=== PATIENT | female | born 1970 | race African-American/Black ===

== ENCOUNTER 2016-06-26 17:27 | Emergency (ER) | payer MEDICARE, MEDICAID ==
[2016-06-26 18:27] LABS: ALT (SGPT) 16 U/L (0-55); AST (SGOT) 17 U/L (5-34); Alkaline Phosphatase 87 U/L (40-150); Anion Gap 12 mmol/L (10-20); BUN (Urea Nitrogen) 8 mg/dL (7.0-18.7); Bilirubin, Total 0.3 mg/dL (0.2-1.2); Calc. Creatinine Clearance 0 mL/min (70-130); Calcium 8.8 mg/dL (7.8-10.44); Carbon Dioxide 25 mmol/L (22-29); Chloride 107 mmol/L (98-107); Estimated GFR-MDRD Greater than 90; Globulin 3.6 g/dL (2.4-3.5); Protein, Total 7.1 g/dL (6.0-8.3)
[2016-06-26 18:29] LABS: Troponin I Less than 0.010 ng/mL (< 0.028)
[2016-06-26 18:37] LABS: #Basophils 0.1 thou/uL (0.0-0.2); #Eosinphils 0.1 thou/uL (0.0-0.7); #Lymphocytes 2.2 thou/uL (1.20-3.40); #Monocytes 0.4 thou/uL (0.11-0.59); #Neutrophils 4.3 thou/uL (1.40-6.50); %Basophils 0.8 % (0.0-1.0); %Eosinophils 1.1 % (0.0-10.0); %Monocytes 5.5 % (0.0-10.0); Hematocrit 33.6 % (36.0-47.0); Hypochromia SLIGHT = 6-15 cells (100X) (0-5/hpf); Mean Platelet Volume 8.4 fL (7.4-10.4); Microcytosis SLIGHT = 6-15 cells (100X) (0-5/hpf); Red Blood Cell (RBC) Count 4.41 mill/uL (4.20-5.40); White Blood Cell (WBC) Count 7.1 thou/uL (4.8-10.8)
[2016-06-26] MEDS ORDERED: Enoxaparin Sodium 60 MG/0.6 ML SYRINGE ONE (18:55)
[2016-06-26] MEDS ORDERED: Enoxaparin Sodium 40 MG/0.4 ML SYRINGE ONE (18:55)
[2016-06-26 18:59] LABS: Prothrombin Time 13.8 SEC (12.0-14.7)
--- NOTE | 2016-06-26 19:23 | CT ---
CTA CHEST WITH 3D REFORMATTED IMAGING 06/26/16 CLINICAL HISTORY: Pain. History of deep vein thrombosis. Intermittent shortness of breath and chest pain. FINDINGS: There is no large central pulmonary embolus. There is beam attenuation and beam hardening artifact w hich does limit assessment. The segmental and subsegmental pulmonary arterial branches are diffusely heterogeneous which limits evaluation and could potentially obscure small peripheral emboli. The prosper ngs are clear. There is no effusion or pneumothorax. The thoracic aorta is nonaneurysmal. Scattered osseous degenerative changes are present. IMPRESSION: No large central pulmonary embolus. Evaluation is limited by the degree of beam hardening and result ant contrast bolus heterogeneity within the pulmonary arterial system. This could obscure filling de fects of the segmental and subsegmental pulmonary arterial branches. The equivocal nature of this exam was discussed with the patient's ER physician, Chon Guzman at 18 35 hours, 06/26/16. Code CR POS: BROOKS
--- NOTE | 2016-06-26 21:05 | PICIS ---
[facility] EMERGENCY RECORD TRIAGE (FriJun 26, 2016 17:32 EPIE) TRIAGE NOTES: Pt states that she thinks she has a blood clot. Pt took a plane ride on Friday to [place]. Pt reports restlessness, and pain in bilateral legs. Pt reports some SOB. (FriJun 26, 2016 17:32 EPIE) PATIENT: NAME: Sabino Whitman, AGE: 45, GENDER: female, : Fri1970, TIME OF GREET: FriJun 26, 2016 17:28, PREFERRED LANGUAGE: Belarusian, ETHNICITY: Not or , ECODE BILLING MAP: [facility], SSN: [id number], Zip Code: [address], KG WEIGHT: 157.40, PHONE: , , , PERSON ID: [id number], PCP: Machelle, Alphonso. (FriJun 26, 2016 17:32 EPIE) COMPLAINT: BILATERAL LEG PAIN. (FriJun 26, 2016 17:32 EPIE) ADMISSION: URGENCY: 3 Urgent, ADMISSION SOURCE: Home, TRANSPORT: CAR, BED: TRIAGE. (FriJun 26, 2016 17:32 EPIE) TRIAGE SCREENING: Patient denies suicidal ideation, Patient denies presence of domestic violence. (17:35 EPIE) TREATMENTS IN PROGRESS: Treatments given Prehospital: none. (17:35 EPIE) PROVIDERS: TRIAGE NURSE: Katherin Reynaga RN. (FriJun 26, 2016 17:32 EPIE) VITAL SIGNS: BP 180/81, Pulse 79, Resp 20, (Non-Labored), Temp 99.5, (Oral), Pain 9, O2 Sat 100, on Room Air, Time 06/26/2016 17:30. (17:30 EPIE) KNOWN ALLERGIES ampicillin Ultram CURRENT MEDICATIONS lisinopril: TABLET : Strength - 10 mg : ORAL Patient Dose: 10 mg Oral once a day. (17:32 EPIE) aspirin: TABLET : Strength - 325 mg : ORAL Patient Dose: 325 mg Oral once a day. (17:33 EPIE) NexIUM: CAPSULE,DELAYED RELEASE (ENTERIC COATED) : Strength - 20 mg : ORAL Patient Dose: UNK. (17:33 EPIE) VITAL SIGNS VITAL SIGNS: BP: 180/81, Pulse: 79, Resp: 20 (Non-Labored), Temp: 99.5 (Oral), Pain: 9, O2 sat: 100 on Room Air, Time: 06/26/2016 17:30. (17:30 EPIE) BP: 132/58, Pulse: 67, Resp: 20 (Non-Labored), O2 sat: 100 on Room Air, Time: 06/26/2016 18:30. (18:30 EPIE) BP: 132/51, Pulse: 69, Resp: 20 (Non-Labored), Temp: 98.6 (Oral), O2 sat: 98 on Room Air, Time: 06/26/2016 19:00. (19:00 EPIE) NURSING ASSESSMENT: FALL RISK (19:05 EPIE) &a-1R&a+25V*p+0X*s3039O*c202B*c15G*c2P*p-0X&a-25V&a+1R Name: Sabino Whitman : 1970 F45 MedRec: [id number] AcctNum: [id number] Prepared: FriJun 26, 2016 21:29 by Interface Page 1 of 9 pMD [facility] EMERGENCY RECORD FALL RISK: Fall risk assessment findings include: no history of falls (0), No bed rest greater than 2 days (0), No use of level of consciousness altering agents with mentation or cognitive changes (0), No change in blood pressure (0), No sensory deficits (0), No impaired mobility (0), No neurologic diagnosis (0), No elimination problems (0), No confusion (0), Total score 0, No risk for fall. NURSING ASSESSMENT: HEAD-TO-TOE (17:39 EPIE) CONSTITUTIONAL: Patient arrives ambulatory, Gait steady, History obtained from patient, Patient appears, anxious, Patient cooperative, Patient alert, Oriented to person, place and time, Skin warm, Skin dry, Skin normal in color, Mucous membranes pink, Mucous membranes moist, Patient is well-groomed, Pt states that she thinks she has a blood clot. Pt took a plane ride on Friday to [place]. Pt reports restlessness, and pain in bilateral legs. Pt reports some SOB. PAIN: aching pain, sharp pain, throbbing pain, BILATERAL LEGS, Onset of pain 06/26/2016, on a scale 0-10 patient rates pain as 9, Pt does not appear to be in distress, Nothing has been tried to alleviate the pain. SKIN: Skin assessment findings include skin warm, Skin dry, Skin normal in color. NEURO: Able to close eyes, Face symmetrical, Speech normal, GCS:, Eye opening: (4) - Spontaneous, Verbal: (5) - Oriented/conversive, Motor: (6) - Obeys commands/Spontaneous, GCS Total: 15. RESPIRATORY/CHEST: Breath sounds clear, Respiratory assessment findings include respiratory effort easy, Respirations regular, Conversing normally, Neck and chest exam findings include trachea midline, Chest expansion equal, Chest movement symmetrical, no signs of distress. CARDIOVASCULAR: Cardiovascular assessment findings include heart rate normal, Heart sounds normal, S1, S2, Associated with dyspnea, Patient history of DVT or leg swelling. ABDOMEN: Abdomen assessment findings include abdomen symmetrical, Abdomen soft. NURSING PROCEDURE: BEDSIDE SIRS TESTING (19:05 EPIE) SCORES: Heart Rate 55-109 (0), Temp range 96.8-101.1 (0), respiratory rate 12-24 (0), Latest WBC 3-14.9 (0), Mental Status altered: no (0), Infection or Suspected Infection: No. NURSING PROCEDURE: CLAIMS SUPPORT SPECIALIST (18:02 EPIE) PATIENT IDENTIFIER: Patient actively involved in identification process, Patient's identity verified by patient stating name, Patient's identity verified by hospital ID bracelet. CLAIMS SUPPORT SPECIALIST: Patient placed on director cardiac, Patient placed on non-invasive blood pressure monitor, with disposable blood pressure cuff applied, Patient placed on continuous pulse oximetry, &a-1R&a+25V*p+0X*o9063O*c202B*c15G*c2P*p-0X&a-25V&a+1R Name: Azar Whitmanisi Mcfarlane : 1970 F45 MedRec: [id number] AcctNum: [id number] Prepared: FriJun 26, 2016 21:29 by Interface Page 2 of 9 pMD [facility] EMERGENCY RECORD Adult/pediatric oxisensor applied. FOLLOW-UP: After procedure, alarms set and on, After procedure, patient tolerating monitoring. NURSING PROCEDURE: EKG CHART (17:53 EPIE) EK lead EKG performed on the left chest, done by Katherin VASQUEZ, first EKG. FOLLOW-UP: After procedure, EKG for interpretation given to Dr. Thomas GODWIN. NURSING PROCEDURE: IV (18:00 MSPE) IV SITE 1: IV therapy indicated for hydration, IV therapy indicated for medication administration, IV established, to the right antecubital, using an 18 gauge catheter, in one attempt, IV site prepped with Chloraprep, Saline lock established, Flushed with normal saline (mls): 10, Labs drawn at time of placement, labeled in the presence of the patient and sent to lab. NURSING PROCEDURE: NURSE NOTES (18:03 EPIE) NURSES NOTES: Notes: Patient resting with RR even and unlabored. No new complaints at this time. Warm blankets given for comfort. Awaiting CT scan. NURSING PROCEDURE: TRANSFER (19:20 EPIE) TRANSFER: Reason for transfer need for specialized care, Diagnosis: Bilateral Pulmonary Embolism, Accepting institution: [facility] ER, Accepting physician: Martin GODWIN, Referring physician: Thomas GODWIN, Transported by urgent ambulance, accompanied by emergency medical services personnel, Report called to receiving facility, Gillian VASQUEZ, Provided opportunity to answer questions, Bed assigned ER to ER, Summary of Care printed, Copy of patient record prepared for receiving facility, Patient consent for transfer signed. BELONGINGS: Belongings and valuables with patient upon arrival to the Emergency Department include:, Belongings and valuables with patient at time of discharge include:, Belongings remain with patient, Valuables remain with patient. NURSING PROCEDURE: TRANSPORT TO TESTS TRANSPORT TO TESTS: Patient transported to CT scan, ambulatory, Accompanied by x-ray quality assurance qa lab technician. (18:14 EPIE) FOLLOW-UP: After procedure, patient returned to emergency department. (18:22 EPIE) ORDER DETAILS Order Name: CLAIMS SUPPORT SPECIALIST ED, Status: Done, Time: 18:02 06/26/2016, User: EPIE, - Ordered for: MD Thomas, Chon, - Entered by: CHRISTINA Reynaga, Katherin - Neela Jun 26, 2016 18:02, - Quantity: 1, &a-1R&a+25V*p+0X*k4351Y*c202B*c15G*c2P*p-0X&a-25V&a+1R Name: Sabino Whitman : 1970 F45 MedRec: [id number] AcctNum: [id number] Prepared: FriJun 26, 2016 21:29 by Interface Page 3 of 9 D [facility] EMERGENCY RECORD Order Name: Cardiac Profile w/CKMB & Troponin - I, Status: Active, Time: 17:52 06/26/2016, User: BPIC, - Ordered for: MD Guzman Bryan, - Entered by: MD Guzman [facility] - [facility] Jun 26, 2016 17:52, - Quantity: 1, Order Name: CBC with Differential, Status: Active, Time: 17:52 06/26/2016, User: BPIC, - Ordered for: MD Guzman Bryan, - Entered by: MD Guzman Bryan - [facility] Jun 26, 2016 17:52, - Quantity: 1, Order Name: Comprehensive Metabolic Panel, Status: Active, Time: 17:52 06/26/2016, User: BPIC, - Ordered for: MD Guzman Bryan, - Entered by: MD Guzman Bryan - [facility] Jun 26, 2016 17:52, - Quantity: 1, Order Name: CTA Angio Chest W WO Con(PE Protocol), Status: Active, Time: 17:52 06/26/2016, User: BPIC, - Ordered for: MD Guzman Bryan, - Entered by: MD Guzman Bryan - [facility] Jun 26, 2016 17:52, - Quantity: 1, Order Name: D-Dimer (Quantitative), Status: Active, Time: 17:52 06/26/2016, User: BPIC, - Ordered for: MD Guzman Bryan, - Entered by: MD Guzman Bryan - [facility] Jun 26, 2016 17:52, - Quantity: 1, Order Name: EKG 12 Lead in Emergency Room, Status: Active, Time: 17:52 06/26/2016, User: BPIC, - Ordered for: MD Guzman Bryan, - Entered by: MD Guzman Bryan - [facility] Jun 26, 2016 17:52, - Quantity: 1, Order Name: Protime with INR, Status: Active, Time: 18:44 06/26/2016, User: BPIC, - Ordered for: MD Guzman Bryan, - Entered by: MD Guzman Bryan - FriJun 26, 2016 18:44, - Quantity: 1, Order Name: PTT, Status: Active, Time: 18:44 06/26/2016, User: BP, - Ordered for: MD Guzman Bryan, - Entered by: MD Guzman Bryan - FriJun 26, 2016 18:44, - Quantity: 1, Order Name: SALINE LOCK, Status: Done, Time: 18:02 06/26/2016, User: EPIE, - Ordered for: MD Guzman Bryan, - Entered by: CHRISTINA Reynaga Emily - FriJun 26, 2016 18:02, - Quantity: 1. MEDICATION ADMINISTRATION SUMMARY Drug Name: *Lovenox, Dose Ordered: 1 mg/kg, Route: Subcutaneous, Status: Given, Time: 19:00 06/26/2016, *Additional information available in notes, Detailed record available in Medication Service &a-1R&a+25V*p+0X*z0129E*c202B*c15G*c2P*p-0X&a-25V&a+1R Name: Sabino Whitman : 1970 F45 MedRec: [id number] AcctNum: [id number] Prepared: FriJun 26, 2016 21:29 by Interface Page 4 of 9 pMD [facility] EMERGENCY RECORD section. MEDICATION SERVICE (19:00 [facility]) Lovenox: Order: Lovenox (enoxaparin sodium) - Dose: 1 mg/kg : Subcutaneous Notes: 100 mg Ordered by: Chon Guzman MD Entered by: Chon Guzman MD FriJun 26, 2016 18:44 , Acknowledged by: Henrietta Small RN FriJun 26, 2016 18:53, Co-signed by: Katherin Reynaga RN FriJun 26, 2016 18:55 Documented as given by: Henrietta Small RN FriJun 26, 2016 19:00 Patient, Medication, Dose, Route and Time verified prior to administration. Amount given: 100mg, Correct patient, time, route, dose and medication confirmed prior to administration, Patient advised of actions and side-effects prior to administration, Allergies confirmed and medications reviewed prior to administration, Advised not to ambulate without assistance, Patient in position of comfort, Side rails up, Cart in lowest position, Family at bedside, Dose divided right and left side abdomen. HPI EXTREMITY (17:52 BPIC) CHIEF COMPLAINT: Patient presents for evaluation of pain, to bilateral upper legs. HISTORIAN: pt with hx of dvt in the past who stopped taking xarelto in April and is currently taking ASA only pw bilateral thigh pain similar to the episode of dvt that she had in the past. sharp pain, worse with movement. pt is also obese, although she has been losing weight, and recently returned from a flight to [facility]. pt also reports intermittent cp and sob. ROS (17:54 BPIC) CONSTITUTIONAL: Negative constitutional review of systems, Historian denies chills, denies fever. EYES: Negative eye review of systems. ENT: Negative ears, nose, throat review of systems. CARDIOVASCULAR: Negative cardiovascular review of systems, Historian denies chest pain, Historian denies palpitations. no symptoms currently, but has had intermittent cp. RESPIRATORY: Negative respiratory review of systems, Historian denies cough, denies shortness of breath. GI: Negative gastrointestinal review of systems, Historian denies abdominal pain, denies constipation, denies diarrhea. MUSCULOSKELETAL: see hpi. SKIN: Negative skin review of systems. NEUROLOGIC: Negative neurologic review of systems. ENDOCRINE: Negative endocrine review of systems. HEMO/LYMPHATIC: Normal hematologic/lymphatic system review. PSYCHIATRIC: Negative psychiatric review of systems. NOTES: All other ROS is negative except as listed in &a-1R&a+25V*p+0X*y0208D*c202B*c15G*c2P*p-0X&a-25V&a+1R Name: Sabino Whitman : 1970 F45 MedRec: [id number] AcctNum: [id number] Prepared: FriJun 26, 2016 21:29 by Interface Page 5 of 9 pMD [facility] EMERGENCY RECORD HPI. PAST MEDICAL HISTORY MEDICAL HISTORY: Notes: DVT, Past medical history includes hematological history, anemia assoc with her pregnancies, Past medical history includes history of malignancy, primary site cervical, treated with surgery, ASTHMA/SLEEP APNEA WITH C PAP, Flu vaccine not up to date, Past medical history includes history of hypertension, which has been treated, arthritis, "gastrointestinal bacteria," per pt, fibroids, "fatty liver.". (17:35 EPIE) FEMALE SURGICAL HISTORY: Surgical history of cholecystectomy, procedure for tx of cervical Ca, ortho-L knee, varicose veins stripping in legs. D&C. (17:35 EPIE) PSYCHIATRIC HISTORY: Notes: ANXIETY, DEPRESSION. (17:35 EPIE) SOCIAL HISTORY: Patient drinks socially, rarely, Patient denies drug use, Patient has no smoking history. (17:35 EPIE) NOTES: I have reviewed and agree with the PMH/PSxH/FamHx/SocHx obtained by the nurse. (17:54 BPIC) PHYSICAL EXAM (17:54 BPIC) CONSTITUTIONAL: Vital signs reviewed, Patient appears non toxic, Patient alert and oriented to person, place and time, Pt is in no apparent distress, obese. HEAD: Head exam included findings of head atraumatic, normocephalic. EYES: Eye exam included findings of eyelids normal to inspection, Pupils equally round and reactive to light, Extraocular muscles intact. ENT: ENT exam normal, Nose exam normal, no nasal deformity, no bleeding from nares, Pharynx exam normal, Mouth exam normal, mucous membranes moist. NECK: Neck exam included findings of normal range of motion, Trachea midline. RESPIRATORY CHEST: Respiratory and chest exam normal, Breath sounds clear, No wheezing, No rales, Chest exam included findings of chest movement symmetrical, Chest expansion equal. CARDIOVASCULAR: Cardiovascular assessment normal, Cardiovascular exam included findings of heart rate regular rate and rhythm, Heart sounds normal. ABDOMEN FEMALE: Abdominal exam included findings of abdomen nontender, Bowel sounds normal, no mass, no pulsatile masses, no peritoneal signs. BACK: Back exam included findings of normal inspection, range of motion normal, no costovertebral angle tenderness. UPPER EXTREMITY: Upper extremity exam included findings of inspection normal, Range of motion normal. LOWER EXTREMITY: calves are scarred from previous vein stripping surgery. bilateral thighs are tender to palpation and with movement. no erythema nor ecchymosis. &a-1R&a+25V*p+0X*b9449S*c202B*c15G*c2P*p-0X&a-25V&a+1R Name: Sabino Whitman : 1970 F45 MedRec: [id number] AcctNum: [id number] Prepared: FriJun 26, 2016 21:29 by Interface Page 6 of 9 pMD [facility] EMERGENCY RECORD NEURO: Neuro exam findings include patient oriented to person, place and time, Speech normal, no focal motor deficits, no focal sensory deficits. SKIN: Skin exam included findings of skin warm, dry, and normal in color. LYMPHATIC: Lymphatic exam normal. PSYCHIATRIC: Psychiatric exam included findings of patient oriented to person place and time, Normal affect. EVENTS TRANSFER: Triage to Emergency Triage. (FriJun 26, 2016 17:32 EPIE) Emergency Triage to Emergency Room -03. (17:33 EPIE) Removed from Emergency Emergency Room -03. (19:35 DOEC) RADIOLOGYINTERPRETATION (18:45 BPIC) CHEST: Chest CT, pulmonary embolism bilaterally, Other findings: bilateral small segmental findings of likely PE. EKG INTERPRETATION (17:57 BPIC) 12 LEAD EKG INTERPRETATION: 12 lead EKG interpreted by Emergency Department Physician at time of study, 12 lead EKG shows normal sinus rhythm, Rate (beats per minute): 70, Interpretation: normal EKG, Conduction normal, ST segments normal, Other findings include:, sinus arrhythmia, Clinical impression: Normal EKG. DOCTOR NOTES (18:50 BPIC) TEXT: I discussed this patient with Dr. Salazar who accepted for transfer to the ED Diagnosis and plan have been discussed with the patient. The patient understands the treatment plan and all questions have been answered. A transfer will be done to a facility that has a higher level of care and additional portrait consultant capabilities. PROBLEM LIST No recorded problems DIAGNOSIS (18:51 BPIC) FINAL: PRIMARY: Pulmonary Embolism. DISPOSITION PATIENT: Disposition Type: Transfer, Disposition: Transfer to [facility], Condition: Good. (18:51 BPIC) Patient left the department. (19:35 DOEC) PRESCRIPTION No recorded prescriptions IMAGING *EKG: Image captured from scanner. (18:02 EPIE) &a-1R&a+25V*p+0X*o6600J*c202B*c15G*c2P*p-0X&a-25V&a+1R Name: Sabino Whitman : 1970 F45 MedRec: [id number] AcctNum: [id number] Prepared: FriJun 26, 2016 21:29 by Interface Page 7 of 9 pMD [facility] EMERGENCY RECORD *MEMORANDUM OF TRANSFER: Image captured from scanner. (19:06 [facility]) TRANSFER CONSENT: Image captured from scanner. (19:06 [facility]) *SUPPLY CHARGE SHEET: Image captured from scanner. (19:26 EPIE) ADMIN (21:16 BP) DIGITAL SIGNATURE: MD Guzman Bryan. RESULTS LABORATORY: Cardiac Profile w/CKMB & TropI Collection DT: FriJun 26, 2016 18:02, CKMB 0.6 ng/mL, Range (0-6.6), Troponin I Less than 0.010 ng/mL, Range (< 0.028), Reference Range , 0.00 - 0.028 ng/mL Negative 0.029 - 0.29 ng/mL , Indeterminate Greater or Equal to 0.3 ng/mL Strongly suggests [place] , . (18:35 BPIC) Comprehensive Metabolic Panel Collection DT: FriJun 26, 2016 18:02, Sodium 140 mmol/L, Range (136-145), Potassium 3.6 mmol/L, Range (3.5-5.1), Chloride 107 mmol/L, Range (98-107), Carbon Dioxide 25 mmol/L, Range (22-29), Anion Gap 12 mmol/L, Range (10-20), BUN (Urea Nitrogen) 8 mg/dL, Range (7.0-18.7), Creatinine 0.81 mg/dL, Range (0.6-1.1), Estimated GFR-MDRD Greater than 90 , Reference Range for Estimated GFR: Greater than 90, mL/min/1.73 m2 NOTE: The MDRD equation has not been validated for use, with the elderly (over 70 years of age), women, patients with, serious comorbid condition or persons with extremes of body size, muscle, mass, or nutritional status. , Glucose 88 mg/dL, Range (70-105), Calcium 8.8 mg/dL, Range (7.8-10.44), Bilirubin, Total 0.3 mg/dL, Range (0.2-1.2), Protein, Total 7.1 g/dL, Range (6.0-8.3), NOTE: Plasma values are generally 0.3 to 0.5 g/dL higher than serum values, due to the presence of fibrinogen. , Albumin 3.5 g/dL, Range (3.5-5.0), *Globulin 3.6 - H g/dL, Range (2.4-3.5), *Alb/Glob Ratio 1.0 - L g/dL, Range (1.2-2.2), Alkaline Phosphatase 87 U/L, Range (40-150), AST (SGOT) 17 U/L, Range (5-34), ALT (SGPT) 16 U/L, Range (0-55). (18:35 BPIC) D-Dimer (Quantitative) Collection DT: FriJun 26, 2016 18:02, *D-Dimer Test 1.13 - H *mcg/mL, Range (0.27-0.43), * Reference &a-1R&a+25V*p+0X*d6263R*c202B*c15G*c2P*p-0X&a-25V&a+1R Name: Azar Whitmanisi Mcfarlane : 1970 F45 MedRec: [id number] AcctNum: [id number] Prepared: FriJun 26, 2016 21:29 by Interface Page 8 of 9 pMD [facility] EMERGENCY RECORD Range Units: mcg/mL of fibrinogen equivalent, units(FEU) Based upon a retrospective study of [facility] patients in October 2005, a result of Less than 0.44 mcg/mL FEU is, predictive of the absence of a DVT or PE. . (18:42 BPIC) CBC with Differential Collection DT: FriJun 26, 2016 18:02, White Blood Cell (WBC) Count 7.1 thou/uL, Range (4.8-10.8), Red Blood Cell (RBC) Count 4.41 mill/uL, Range (4.20-5.40), *Hemoglobin 10.0 - L g/dL, Range (12.0-16.0), *Hematocrit 33.6 - L %, Range (36.0-47.0), *Mean Corpuscular Volume 76.3 - L fl, Range (81.0-99.0), *Mean Corpuscular Hemoglobin 22.8 - L pg, Range (27.0-31.0), *Mean Corpuscular HGB CONC 29.9 - L g/dL, Range (32.0-36.0), *RBC Distribution Width 16.2 - H %, Range (11.5-14.5), Platelet Count 254 thou/uL, Range (130-400), Mean Platelet Volume 8.4 fL, Range (7.4-10.4), %Neutrophils 61.5 %, Range (42.0-75.0), %Lymphocytes 31.0 %, Range (21.0-51.0), %Monocytes 5.5 %, Range (0.0-10.0), %Eosinophils 1.1 %, Range (0.0-10.0), %Basophils 0.8 %, Range (0.0-1.0), #Neutrophils 4.3 thou/uL, Range (1.40-6.50), #Lymphocytes 2.2 thou/uL, Range (1.20-3.40), #Monocytes 0.4 thou/uL, Range (0.11-0.59), #Eosinphils 0.1 thou/uL, Range (0.0-0.7), #Basophils 0.1 thou/uL, Range (0.0-0.2), Microcytosis SLIGHT = 6-15 cells (100X), Range (0-5/hpf), Hypochromia SLIGHT = 6-15 cells (100X), Range (0-5/hpf), Large Platelets SLIGHT , PLT Morphology Comment Appears Adequate . (18:42 BPIC) [place]: BPIC=MD Thomas, Chon FRANKLIN=CHRISTINA Martinez, Austin TURNER=CHRISTINA Reynaga, Katherin WALLACE=CHRISTINA Encinas, Braden MSPE=CHRISTINA Small, Henrietta &a-1R&a+25V*p+0X*i2702N*c202B*c15G*c2P*p-0X&a-25V&a+1R Name: Azar Whitmanisi Mcfarlane : 1970 F45 MedRec: [id number] AcctNum: [id number] Prepared: FriJun 26, 2016 21:29 by Interface Page 9 of 9 pMD MTDD
--- NOTE | 2016-06-26 21:05 | ERRECORD ---
[facility] EMERGENCY RECORD HPI EXTREMITY (17:52 BPIC) CHIEF COMPLAINT: Patient presents for evaluation of pain, to bilateral upper legs. HISTORIAN: pt with hx of dvt in the past who stopped taking xarelto in April and is currently taking ASA only pw bilateral thigh pain similar to the episode of dvt that she had in the past. sharp pain, worse with movement. pt is also obese, although she has been losing weight, and recently returned from a flight to [facility]. pt also reports intermittent cp and sob. ROS (17:54 BPIC) CONSTITUTIONAL: Negative constitutional review of systems, Historian denies chills, denies fever. EYES: Negative eye review of systems. ENT: Negative ears, nose, throat review of systems. CARDIOVASCULAR: Negative cardiovascular review of systems, Historian denies chest pain, Historian denies palpitations. no symptoms currently, but has had intermittent cp. RESPIRATORY: Negative respiratory review of systems, Historian denies cough, denies shortness of breath. GI: Negative gastrointestinal review of systems, Historian denies abdominal pain, denies constipation, denies diarrhea. MUSCULOSKELETAL: see hpi. SKIN: Negative skin review of systems. NEUROLOGIC: Negative neurologic review of systems. ENDOCRINE: Negative endocrine review of systems. HEMO/LYMPHATIC: Normal hematologic/lymphatic system review. PSYCHIATRIC: Negative psychiatric review of systems. NOTES: All other ROS is negative except as listed in HPI. PAST MEDICAL HISTORY MEDICAL HISTORY: Notes: DVT, Past medical history includes hematological history, anemia assoc with her pregnancies, Past medical history includes history of malignancy, primary site cervical, treated with surgery, ASTHMA/SLEEP APNEA WITH C PAP, Flu vaccine not up to date, Past medical history includes history of hypertension, which has been treated, arthritis, "gastrointestinal bacteria," per pt, fibroids, "fatty liver.". (17:35 EPIE) FEMALE SURGICAL HISTORY: Surgical history of cholecystectomy, procedure for tx of cervical Ca, ortho-L knee, varicose veins stripping in legs. D&C. (17:35 EPIE) PSYCHIATRIC HISTORY: Notes: ANXIETY, DEPRESSION. (17:35 EPIE) SOCIAL HISTORY: Patient drinks socially, rarely, Patient denies drug use, Patient has no smoking history. (17:35 EPIE) NOTES: I have reviewed and agree with the PMH/PSxH/FamHx/SocHx obtained by the nurse. (17:54 BPIC) KNOWN ALLERGIES &a-1R&a+25V*p+0X*l1634J*c202B*c15G*c2P*p-0X&a-25V&a+1R Name: Sabino Whitman : 1970 F45 MedRec: [id number] AcctNum: [id number] Prepared: FriJun 26, 2016 21:22 by Interface Page 1 of 4 pMD [facility] EMERGENCY RECORD ampicillin Ultram CURRENT MEDICATIONS lisinopril: TABLET : Strength - 10 mg : ORAL Patient Dose: 10 mg Oral once a day. (17:32 EPIE) aspirin: TABLET : Strength - 325 mg : ORAL Patient Dose: 325 mg Oral once a day. (17:33 EPIE) NexIUM: CAPSULE,DELAYED RELEASE (ENTERIC COATED) : Strength - 20 mg : ORAL Patient Dose: UNK. (17:33 EPIE) VITAL SIGNS VITAL SIGNS: BP: 180/81, Pulse: 79, Resp: 20 (Non-Labored), Temp: 99.5 (Oral), Pain: 9, O2 sat: 100 on Room Air, Time: 06/26/2016 17:30. (17:30 EPIE) BP: 132/58, Pulse: 67, Resp: 20 (Non-Labored), O2 sat: 100 on Room Air, Time: 06/26/2016 18:30. (18:30 EPIE) BP: 132/51, Pulse: 69, Resp: 20 (Non-Labored), Temp: 98.6 (Oral), O2 sat: 98 on Room Air, Time: 06/26/2016 19:00. (19:00 EPIE) PHYSICAL EXAM (17:54 BPIC) CONSTITUTIONAL: Vital signs reviewed, Patient appears non toxic, Patient alert and oriented to person, place and time, Pt is in no apparent distress, obese. HEAD: Head exam included findings of head atraumatic, normocephalic. EYES: Eye exam included findings of eyelids normal to inspection, Pupils equally round and reactive to light, Extraocular muscles intact. ENT: ENT exam normal, Nose exam normal, no nasal deformity, no bleeding from nares, Pharynx exam normal, Mouth exam normal, mucous membranes moist. NECK: Neck exam included findings of normal range of motion, Trachea midline. RESPIRATORY CHEST: Respiratory and chest exam normal, Breath sounds clear, No wheezing, No rales, Chest exam included findings of chest movement symmetrical, Chest expansion equal. CARDIOVASCULAR: Cardiovascular assessment normal, Cardiovascular exam included findings of heart rate regular rate and rhythm, Heart sounds normal. ABDOMEN FEMALE: Abdominal exam included findings of abdomen nontender, Bowel sounds normal, no mass, no pulsatile masses, no peritoneal signs. BACK: Back exam included findings of normal inspection, range of motion normal, no costovertebral angle tenderness. UPPER EXTREMITY: Upper extremity exam included findings of inspection normal, Range of motion normal. &a-1R&a+25V*p+0X*[id number]*c202B*c15G*c2P*p-0X&a-25V&a+1R Name: Sabino Whitman : 1970 F45 MedRec: [id number] AcctNum: [id number] Prepared: FriJun 26, 2016 21:22 by Interface Page 2 of 4 D [facility] EMERGENCY RECORD LOWER EXTREMITY: calves are scarred from previous vein stripping surgery. bilateral thighs are tender to palpation and with movement. no erythema nor ecchymosis. NEURO: Neuro exam findings include patient oriented to person, place and time, Speech normal, no focal motor deficits, no focal sensory deficits. SKIN: Skin exam included findings of skin warm, dry, and normal in color. LYMPHATIC: Lymphatic exam normal. PSYCHIATRIC: Psychiatric exam included findings of patient oriented to person place and time, Normal affect. EKG INTERPRETATION (17:57 BPIC) 12 LEAD EKG INTERPRETATION: 12 lead EKG interpreted by Emergency Department Physician at time of study, 12 lead EKG shows normal sinus rhythm, Rate (beats per minute): 70, Interpretation: normal EKG, Conduction normal, ST segments normal, Other findings include:, sinus arrhythmia, Clinical impression: Normal EKG. RADIOLOGYINTERPRETATION (18:45 BPIC) CHEST: Chest CT, pulmonary embolism bilaterally, Other findings: bilateral small segmental findings of likely PE. MEDICATION ADMINISTRATION SUMMARY Drug Name: *Lovenox, Dose Ordered: 1 mg/kg, Route: Subcutaneous, Status: Given, Time: 19:00 06/26/2016, *Additional information available in notes, Detailed record available in Medication Service section. DOCTOR NOTES (18:50 BPIC) TEXT: I discussed this patient with Dr. Salazar who accepted for transfer to the ED Diagnosis and plan have been discussed with the patient. The patient understands the treatment plan and all questions have been answered. A transfer will be done to a facility that has a higher level of care and additional loss control consultant capabilities. PROBLEM LIST No recorded problems DIAGNOSIS (18:51 BPIC) FINAL: PRIMARY: Pulmonary Embolism. PRESCRIPTION No recorded prescriptions DISPOSITION PATIENT: Disposition Type: Transfer, Disposition: Transfer to [facility], Condition: Good. (18:51 BPIC) &a-1R&a+25V*p+0X*[id number]*c202B*c15G*c2P*p-0X&a-25V&a+1R Name: Azar Whitmanisi Maeve : 1970 F45 MedRec: [id number] AcctNum: [id number] Prepared: FriJun 26, 2016 21:22 by Interface Page 3 of 4 pMD [facility] EMERGENCY RECORD Patient left the department. (19:35 DOEC) [place]: BPIC=MD Thomas, Chon DOEC=CHRISTINA Martinez, [place] EPIE=CHRISTINA Reynaga, Katherin &a-1R&a+25V*p+0X*[id number]*c202B*c15G*c2P*p-0X&a-25V&a+1R Name: J CarlosSabino : 1970 F45 MedRec: [id number] AcctNum: [id number] Prepared: FriJun 26, 2016 21:22 by Interface Page 4 of 4 pMD MTDD
== END 2016-06-26 19:27 | disposition short-term general hospital (02) ==
LOC: NAV ERS 17:27
DX: I26.99 Other pulmonary embolism without acute cor pulmonale (principal); I10 Essential (primary) hypertension; F41.9 Anxiety disorder, unspecified; F32.9 Major depressive disorder, single episode, unspecified
CPT/HCPCS: 71275; 80053; 82553; 84484; 85025; 85379; 85610; 85730; 93005; 96372; J1650

== ENCOUNTER 2016-09-23 16:37 | Outpatient (CLI) | payer MEDICARE, MEDICAID ==
[2016-09-23 17:02] LABS: INR-International Normal Ratio 1.1; Prothrombin Time 14.2 SEC (12.0-14.7)
== END 2016-09-23 16:38 | disposition home or self-care (01) ==
LOC: NAV LAB 16:37
PROVIDERS: ATTEND Nurse Practitioner
DX: Z51.81 Encounter for therapeutic drug level monitoring (principal); I26.99 Other pulmonary embolism without acute cor pulmonale; Z79.01 Long term (current) use of anticoagulants
CPT/HCPCS: 36415; 85610

== ENCOUNTER 2016-12-24 13:03 | Outpatient (CLI) | payer OTHER ==
--- NOTE | 2016-12-24 15:58 | RAD ---
RIGHT KNEE TWO VIEWS: History: Disability evaluation. FINDINGS: There are early pronounced arthritic changes of the knee. There is marked medial compartment narrowi ng. There is prominent spur formation of the lateral and patellofemoral compartments. IMPRESSION: Severe osteoarthritic changes of the knee. POS: [facility]
== END 2016-12-24 13:04 | disposition home or self-care (01) ==
LOC: NAV RAD 13:03
PROVIDERS: ATTEND Family Medicine
DX: Z02.71 Encounter for disability determination (principal)

== ENCOUNTER 2017-04-29 19:55 | Emergency (ER) | payer MEDICARE, OTHER ==
[~2017-04-29 19:55] MED LIST: Iopamidol 370 76% 100 ML VIAL ONE
[2017-04-29] MEDS ORDERED: Sodium Chloride 0.9% 500 ML ONE (20:16)
[2017-04-29 20:45] LABS: INR-International Normal Ratio 1.2; Prothrombin Time 14.9 SEC (12.0-14.7)
[2017-04-29 20:46] LABS: PTT 29.1 SEC (22.9-36.1)
[2017-04-29 20:48] LABS: #Basophils 0.1 thou/uL (0.0-0.2); #Eosinphils 0.1 thou/uL (0.0-0.7); #Lymphocytes 2.6 thou/uL (1.20-3.40); #Monocytes 0.4 thou/uL (0.11-0.59); %Basophils 1.2 % (0.0-1.0); %Eosinophils 1.1 % (0.0-10.0); %Monocytes 5.1 % (0.0-10.0); %Neutrophils 60.6 % (42.0-75.0); Hemoglobin 13.2 g/dL (12.0-16.0); Mean Corpuscular Hemoglobin 27.9 pg (27.0-31.0); Mean Platelet Volume 8.8 fL (7.4-10.4); Platelet Count 190 thou/uL (130-400); Red Blood Cell (RBC) Count 4.74 mill/uL (4.20-5.40); White Blood Cell (WBC) Count 8.2 thou/uL (4.8-10.8)
[2017-04-29 20:55] LABS: ALT (SGPT) 15 U/L (8-55); AST (SGOT) 18 U/L (5-34); Albumin 3.8 g/dL (3.5-5.0); Alkaline Phosphatase 93 U/L (40-150); Anion Gap 14 mmol/L (10-20); BUN (Urea Nitrogen) 11 mg/dL (7.0-18.7); Bilirubin, Total 0.4 mg/dL (0.2-1.2); CK (CPK) 284 U/L (29-168); Calc. Creatinine Clearance 0 mL/min (70-130); Carbon Dioxide 24 mmol/L (22-29); Chloride 105 mmol/L (98-107); Estimated GFR-MDRD 79; Globulin 3.3 g/dL (2.4-3.5); Glucose 108 mg/dL (70-105); Lipase 42 U/L (8-78); Potassium 4.1 mmol/L (3.5-5.1); Protein, Total 7.1 g/dL (6.0-8.3); Sodium 139 mmol/L (136-145)
[2017-04-29 20:56] LABS: CKMB 0.8 ng/mL (0-6.6); Troponin I Less than 0.010 ng/mL (< 0.028)
--- NOTE | 2017-04-29 21:01 | RAD ---
CHEST ONE VIEW: 04/29/17 HISTORY: Dyspnea. Chest pain. COMPARISON: 01/22/16. FINDINGS: The cardiac silhouette is magnified by projection. Pulmonary vasculature is unremarkable. Mediastinu m is midline. There is no lobar consolidation, or evidence of pneumothorax. IMPRESSION: No active cardiopulmonary abnormalities are demonstrated. POS: [facility]
--- NOTE | 2017-04-29 21:25 | CT ---
CT ARTERIOGRAM CHEST WITH IV CONTRAST AND 3D MIP IMAGING 04/29/17 HISTORY: Chest pain. Dyspnea. COMPARISON: 06/26/16. FINDINGS: There is good contrast opacification of the central pulmonary arteries and the thoracic aorta. Perip heral portions of the pulmonary arteries are not well evaluated due to motion artifact and patient b christopher habits. Nonenlarged, nonspecific lymph nodes are scattered throughout the mediastinum. No pleura l fluid or pneumothorax are apparent. IMPRESSION: No CT evidence of pulmonary embolus. POS: [facility]
== END 2017-04-29 21:39 | disposition home or self-care (01) ==
LOC: NAV ERS 19:55
DX: R07.9 Chest pain, unspecified (principal); I10 Essential (primary) hypertension; J45.909 Unspecified asthma, uncomplicated; F32.9 Major depressive disorder, single episode, unspecified; F41.9 Anxiety disorder, unspecified; Z79.01 Long term (current) use of anticoagulants; Z79.899 Other long term (current) drug therapy
CPT/HCPCS: 71010; 71275; 80053; 82550; 82553; 83690; 83880; 84484; 85025; 85610; 85730; 93005; 96360; J7050

== ENCOUNTER 2017-07-04 18:34 | Emergency (ER) | payer MEDICARE ==
[2017-07-04] MEDS ORDERED: Mag-Al Plus 1200 MG/1200 MG/120 MG/30 ML UDCUP ONE (19:20)
[2017-07-04] MEDS ORDERED: Lidocaine Viscous Sol 2% 15 ml UD Cup ONE (19:20)
== END 2017-07-04 19:47 | disposition home or self-care (01) ==
LOC: NAV ERS 18:34
DX: K21.0 Gastro-esophageal reflux disease with esophagitis (principal); J45.909 Unspecified asthma, uncomplicated; G47.30 Sleep apnea, unspecified; I10 Essential (primary) hypertension; M19.90 Unspecified osteoarthritis, unspecified site; F41.9 Anxiety disorder, unspecified; F32.9 Major depressive disorder, single episode, unspecified; Z79.01 Long term (current) use of anticoagulants; Z85.41 Personal history of malignant neoplasm of cervix uteri; Z79.899 Other long term (current) drug therapy
CPT/HCPCS: 99283

== ENCOUNTER 2017-11-22 01:12 | Emergency (ER) | payer MEDICARE ==
[2017-11-22] MEDS ORDERED: Promethazine HCl 25 MG/ML VIAL ONE (01:45)
[2017-11-22] MEDS ORDERED: Meclizine HCl 25 MG TAB ONE (01:45)
== END 2017-11-22 02:42 | disposition home or self-care (01) ==
LOC: NAV ERS 01:12
DX: R11.2 Nausea with vomiting, unspecified (principal); R42 Dizziness and giddiness; F32.9 Major depressive disorder, single episode, unspecified; F41.9 Anxiety disorder, unspecified; I10 Essential (primary) hypertension; J45.909 Unspecified asthma, uncomplicated; M19.90 Unspecified osteoarthritis, unspecified site; G47.30 Sleep apnea, unspecified
CPT/HCPCS: 36416; 96372; J2550

== ENCOUNTER 2018-03-24 16:54 | Emergency (ER) | payer MEDICARE, OTHER ==
[2018-03-24 17:49] LABS: #Basophils 0.1 thou/uL (0.0-0.2); #Eosinphils 0.1 thou/uL (0.0-0.7); #Monocytes 0.3 thou/uL (0.11-0.59); #Neutrophils 2.8 thou/uL (1.40-6.50); %Basophils 1.1 % (0.0-1.0); %Eosinophils 1.7 % (0.0-10.0); %Lymphocytes 37.9 % (21.0-51.0); %Monocytes 4.9 % (0.0-10.0); %Neutrophils 54.5 % (42.0-75.0); Hemoglobin 12.4 g/dL (12.0-16.0); Mean Corpuscular HGB CONC 31.2 g/dL (32.0-36.0); Mean Corpuscular Hemoglobin 27.5 pg (27.0-31.0); Mean Platelet Volume 9.3 fL (7.4-10.4); Platelet Count 162 thou/uL (130-400); Red Blood Cell (RBC) Count 4.51 mill/uL (4.20-5.40); White Blood Cell (WBC) Count 5.2 thou/uL (4.8-10.8)
[2018-03-24 17:50] LABS: ALT (SGPT) 27 U/L (8-55); AST (SGOT) 32 U/L (5-34); Albumin 3.6 g/dL (3.5-5.0); Alkaline Phosphatase 80 U/L (40-150); Anion Gap 11 mmol/L (10-20); BUN (Urea Nitrogen) 10 mg/dL (7.0-18.7); Bilirubin, Total 0.5 mg/dL (0.2-1.2); Calc. Creatinine Clearance 0 mL/min (70-130); Calcium 9.1 mg/dL (7.8-10.44); Carbon Dioxide 26 mmol/L (22-29); Chloride 107 mmol/L (98-107); Estimated GFR-MDRD 69; Globulin 3.2 g/dL (2.4-3.5); Glucose 98 mg/dL (70-105); Potassium 3.5 mmol/L (3.5-5.1); Protein, Total 6.8 g/dL (6.0-8.3); Sodium 140 mmol/L (136-145)
[2018-03-24 17:52] LABS: Troponin I Less than 0.010 ng/mL (< 0.028)
[2018-03-24 18:19] LABS: Prothrombin Time 51.4 SEC (12.0-14.7)
[2018-03-24 18:49] LABS: INR-International Normal Ratio 5.7
--- NOTE | 2018-03-24 19:30 | RAD ---
PORTABLE CHEST ONE VIEW: 03/24/18 at 5:22 p.m. HISTORY: Dyspnea. FINDINGS: Comparison is made with exam of 04/29/17. The heart is enlarged. The lungs are expanded without focal areas of consolidation, pneumothorax, fra nk pulmonary edema or pleural effusions. IMPRESSION: No acute process. POS: [facility]
== END 2018-03-24 19:15 | disposition short-term general hospital (02) ==
LOC: NAV ERS 16:54
DX: M79.89 Other specified soft tissue disorders (principal); M79.662 Pain in left lower leg; R06.02 Shortness of breath; Z86.718 Personal history of other venous thrombosis and embolism; J45.909 Unspecified asthma, uncomplicated; G47.30 Sleep apnea, unspecified; I10 Essential (primary) hypertension; F41.9 Anxiety disorder, unspecified; F32.9 Major depressive disorder, single episode, unspecified; Z79.899 Other long term (current) drug therapy
CPT/HCPCS: 71045; 80053; 82553; 83880; 84484; 85025; 85610; 85730; 93005

== ENCOUNTER 2018-04-05 18:23 | Emergency (ER) | payer OTHER ==
--- NOTE | 2018-04-05 19:07 | RAD ---
RIGHT SHOULDER THREE VIEWS: INDICATIONS: Right shoulder pain. COMPARISON: None. FINDINGS: There is severe osteoarthrosis involving the AC joint. There is degenerative subchondral cyst-like a bnormalities involving the right greater tuberosity. The visualized right lung is clear. IMPRESSION: Advanced acromioclavicular joint osteoarthrosis. No definite acute osseous abnormality. POS: [facility]
== END 2018-04-05 19:24 | disposition home or self-care (01) ==
LOC: NAV ERS 18:23
DX: M25.511 Pain in right shoulder (principal); I10 Essential (primary) hypertension; G47.30 Sleep apnea, unspecified; F41.9 Anxiety disorder, unspecified; F32.9 Major depressive disorder, single episode, unspecified; Z86.718 Personal history of other venous thrombosis and embolism; Z79.899 Other long term (current) drug therapy

== ENCOUNTER 2019-07-28 18:31 | Emergency (ER) | payer MEDICARE, OTHER ==
[2019-07-28 19:11] LABS: #Basophils 0.1 thou/uL (0.0-0.2); #Lymphocytes 1.7 thou/uL (1.20-3.40); #Monocytes 0.3 thou/uL (0.11-0.59); #Neutrophils 3.2 thou/uL (1.40-6.50); %Eosinophils 0.9 % (0.0-10.0); %Lymphocytes 31.9 % (21.0-51.0); %Monocytes 4.9 % (0.0-10.0); %Neutrophils 61.2 % (42.0-75.0); Hemoglobin 12.2 g/dL (12.0-16.0); Mean Corpuscular HGB CONC 31.2 g/dL (32.0-36.0); Mean Corpuscular Hemoglobin 27.8 pg (27.0-31.0); Mean Corpuscular Volume 88.9 fL (78.0-98.0); Mean Platelet Volume 9.8 fL (7.4-10.4); Platelet Count 171 thou/uL (130-400); RBC Distribution Width 14.4 % (11.5-14.5); Red Blood Cell (RBC) Count 4.38 mill/uL (4.20-5.40); White Blood Cell (WBC) Count 5.3 thou/uL (4.8-10.8)
[2019-07-28 19:25] LABS: ALT (SGPT) 17 U/L (8-55); AST (SGOT) 23 U/L (5-34); Albumin 3.5 g/dL (3.5-5.0); Alkaline Phosphatase 95 U/L (40-110); Anion Gap 14 mmol/L (10-20); BUN (Urea Nitrogen) 8 mg/dL (7.0-18.7); Bilirubin, Total 0.4 mg/dL (0.2-1.2); Calc. Creatinine Clearance 0 mL/min (70-130); Calcium 8.9 mg/dL (7.8-10.44); Carbon Dioxide 24 mmol/L (22-29); Chloride 106 mmol/L (98-107); Estimated GFR-MDRD 85; Globulin 3.1 g/dL (2.4-3.5); Glucose 100 mg/dL (70-105); Potassium 3.6 mmol/L (3.5-5.1); Protein, Total 6.6 g/dL (6.0-8.3); Sodium 140 mmol/L (136-145)
[2019-07-28 19:52] LABS: INR-International Normal Ratio 2.2; Prothrombin Time 23.9 SEC (12.0-14.7)
== END 2019-07-28 20:10 | disposition home or self-care (01) ==
LOC: NAV ERS 18:31
DX: M79.604 Pain in right leg (principal); D68.9 Coagulation defect, unspecified; I10 Essential (primary) hypertension; Z79.899 Other long term (current) drug therapy; F41.9 Anxiety disorder, unspecified; F32.9 Major depressive disorder, single episode, unspecified; J45.909 Unspecified asthma, uncomplicated; G47.30 Sleep apnea, unspecified
CPT/HCPCS: 80053; 85025; 85379; 85610; 99283

== ENCOUNTER 2019-10-05 00:05 | Emergency (ER) | payer MEDICARE, OTHER ==
[2019-10-05 00:37] LABS: #Eosinphils 0.1 thou/uL (0.0-0.7); #Lymphocytes 1.6 thou/uL (1.20-3.40); #Monocytes 0.3 thou/uL (0.11-0.59); #Neutrophils 3.4 thou/uL (1.40-6.50); %Basophils 0.8 % (0.0-1.0); %Eosinophils 1.9 % (0.0-10.0); %Lymphocytes 29.1 % (21.0-51.0); %Monocytes 5.5 % (0.0-10.0); %Neutrophils 62.6 % (42.0-75.0); Hemoglobin 12.4 g/dL (12.0-16.0); Mean Corpuscular HGB CONC 31.1 g/dL (32.0-36.0); Mean Corpuscular Hemoglobin 28.2 pg (27.0-31.0); Mean Corpuscular Volume 90.8 fL (78.0-98.0); Mean Platelet Volume 10.1 fL (7.4-10.4); Platelet Count 149 thou/uL (130-400); RBC Distribution Width 14.3 % (11.5-14.5); White Blood Cell (WBC) Count 5.5 thou/uL (4.8-10.8)
[2019-10-05 00:44] LABS: INR-International Normal Ratio 1.4
[2019-10-05 00:51] LABS: ALT (SGPT) 10 U/L (8-55); AST (SGOT) 16 U/L (5-34); Albumin 3.5 g/dL (3.5-5.0); Alkaline Phosphatase 78 U/L (40-110); Anion Gap 11 mmol/L (10-20); BUN (Urea Nitrogen) 7 mg/dL (9.8-20.1); Bilirubin, Total 0.3 mg/dL (0.2-1.2); CK (CPK) 223 U/L (29-168); Calc. Creatinine Clearance 0 mL/min (70-130); Calcium 8.4 mg/dL (7.8-10.44); Carbon Dioxide 25 mmol/L (22-29); Chloride 109 mmol/L (98-107); Estimated GFR-MDRD 89; Globulin 3.1 g/dL (2.4-3.5); Glucose 118 mg/dL (70-105); Potassium 3.6 mmol/L (3.5-5.1); Protein, Total 6.6 g/dL (6.0-8.3); Sodium 141 mmol/L (136-145)
--- NOTE | 2019-10-05 07:49 | CT ---
PRELIMINARY REPORT/[facility]/EMERGENCY AFTER HOURS PROCEDURE EXAM: CTA Chest, With Contrast. DATE/ TIME: 10/05/2019, 2:31 AM INDICATION: Chest pain. H/O cervical cancer. TECHNIQUE: During the rapid intravenous administration of 96 mL Isovue-370, helical CT of the chest was performed utilizing angiographic protocol. MPRs and multiplanar MIPs were generated and reviewed. Exam was performed using one or more of the following dose reduction techniques: automate d exposure control, adjustment of the mA and/or kV according to patient size, or use of iterative reconstruction technique. COMPARISON: None. FINDINGS: Pulmonary arterial system is well-opacified and there is no intraluminal filling defect. Main pulmonary artery measures 3.2 cm in diameter. The heart is borderline enlarged. Aorta is without aneurysm or dissection. The lung parenchyma is clear. There is no pleural effusion or lymph adenopathy. Imaging continues into the abdomen to the level of the adrenal glands. Cholecystectomy clips are see n. No upper abdominal acute pathology is evident. Bony thorax is intact, as visualized. IMPRESSION: 1. No pulmonary thromboembolism. 2. Mildly dilated main pulmonary artery suggests a component of pulmonary arterial hypertension. ELECTRONICALLY SIGNED BY: Diogenes Reynoso DO Oct 05, 2019 3:03:46 AM CDT This report is intended for review by the ordering physician only, in accordance of law. If you recei ve this report in error, please call [facility] at [phone]. FINAL REPORT EMERGENT AFTER HOURS CT ANGIOGRAM THORAX WITH IV CONTRAST AND 3-D RECONSTRUCTIONS: HISTORY: Chest pain. Patient feels as if there is a knot in right lung. History of prior DVT and cervical canc er. Asthma and hypertension. COMPARISON: 04/29/2017. IMPRESSION: 1. No CT evidence of a pulmonary embolus involving the central or segmental pulmonary arteries. 2. Lungs are clear. 3. Postcholecystectomy changes. Findings are in agreement with the preliminary report by [facility]. Transcribed Date/Time: 10/05/2019 7:54 AM
[2019-10-05] MEDS ORDERED: Iopamidol 370 76% 100 ML VIAL ONE (09:00)
== END 2019-10-05 03:55 | disposition home or self-care (01) ==
LOC: NAV ERS 00:05
DX: R07.89 Other chest pain (principal); D64.9 Anemia, unspecified; F41.9 Anxiety disorder, unspecified; F32.9 Major depressive disorder, single episode, unspecified; I10 Essential (primary) hypertension; K76.0 Fatty (change of) liver, not elsewhere classified; M19.90 Unspecified osteoarthritis, unspecified site; Z86.718 Personal history of other venous thrombosis and embolism; Z79.01 Long term (current) use of anticoagulants; Z79.899 Other long term (current) drug therapy
CPT/HCPCS: 71275; 80053; 82550; 84484; 85025; 85379; 85610; 93005; Q9967

== ENCOUNTER 2020-03-27 12:57 | Emergency (ER) | payer MEDICARE, OTHER ==
[2020-03-27 13:25] LABS: #Basophils 0.1 thou/uL (0.0-0.2); #Eosinphils 0.1 thou/uL (0.0-0.7); #Lymphocytes 1.9 thou/uL (1.20-3.40); #Monocytes 0.3 thou/uL (0.11-0.59); #Neutrophils 3.9 thou/uL (1.40-6.50); %Eosinophils 0.8 % (0.0-10.0); %Lymphocytes 30.8 % (21.0-51.0); %Monocytes 4.8 % (0.0-10.0); %Neutrophils 62.6 % (42.0-75.0); Hemoglobin 12.9 g/dL (12.0-16.0); Mean Corpuscular HGB CONC 30.3 g/dL (32.0-36.0); Mean Corpuscular Hemoglobin 27.8 pg (27.0-31.0); Mean Corpuscular Volume 91.8 fL (78.0-98.0); Mean Platelet Volume 10.3 fL (7.4-10.4); Platelet Count 166 thou/uL (130-400); Red Blood Cell (RBC) Count 4.63 mill/uL (4.20-5.40); White Blood Cell (WBC) Count 6.3 thou/uL (4.8-10.8)
[2020-03-27 13:40] LABS: ALT (SGPT) 11 U/L (8-55); AST (SGOT) 21 U/L (5-34); Albumin 3.8 g/dL (3.5-5.0); Alkaline Phosphatase 81 U/L (40-110); Anion Gap 14 mmol/L (10-20); BUN (Urea Nitrogen) 11 mg/dL (9.8-20.1); Bilirubin, Total 0.6 mg/dL (0.2-1.2); Calc. Creatinine Clearance 0 mL/min (70-130); Carbon Dioxide 21 mmol/L (22-29); Chloride 107 mmol/L (98-107); Estimated GFR-MDRD 76; Globulin 3.4 g/dL (2.4-3.5); Glucose 98 mg/dL (70-105); Potassium 3.5 mmol/L (3.5-5.1); Protein, Total 7.2 g/dL (6.0-8.3); Sodium 138 mmol/L (136-145)
[2020-03-27 13:40] LABS: INR-International Normal Ratio 3.3; PTT 40.5 sec (22.9-36.1); Prothrombin Time 33.2 sec (12.0-14.7)
--- NOTE | 2020-03-27 14:34 | CT ---
CT arteriogram chest with IV contrast and 3-D imaging HISTORY: Chest pain. Dyspnea. COMPARISON: 10/05/2019 and 04/29/2017. FINDINGS: There is good contrast opacification of central pulmonary arteries and the thoracic aorta. More peripheral pulmonary arteries are somewhat obscured by motion artifact. Azygous vein is Distended. Bovine origin of the great vessels at the aortic arch. Nonspecific left supraclavicular lymph nodes noted. Within the partially visualized upper abdomen, the gallbladder surgically absent with gradual physiol ogic distention of the common bile duct and pancreatic duct. IMPRESSION : No evidence of pulmonary embolus. No acute abnormalities are demonstrated.
[2020-03-27] MEDS ORDERED: Amlodipine 5 MG TAB ONE (14:42)
[2020-03-27 14:49] LABS: Bilirubin Negative (Negative); Blood, Urine Moderate (Negative); Clarity Clear (Clear); Glucose, Urine (Dipstick) Negative (Negative); Ketone, Urine Negative (Negative); Leukocyte Negative (Negative); Nitrite Negative (Negative); Protein, Urine (Dipstick) Negative (Neg-Trace); Urobilinogen 0.2 mg/dL (Less than 2)
[2020-03-27] MEDS ORDERED: clonazePAM 0.5 MG TAB ONE (14:59)
== END 2020-03-27 15:05 | disposition home or self-care (01) ==
LOC: NAV ERS 12:57
DX: I10 Essential (primary) hypertension (principal); F41.9 Anxiety disorder, unspecified; Z86.711 Personal history of pulmonary embolism; Z86.718 Personal history of other venous thrombosis and embolism; D64.9 Anemia, unspecified; M19.90 Unspecified osteoarthritis, unspecified site; F32.9 Major depressive disorder, single episode, unspecified; V79.60XA Unspecified bus occupant injured in collision with unspecified motor vehicles in traffic accident, initial encounter; Z79.899 Other long term (current) drug therapy
CPT/HCPCS: 71275; 80053; 81003; 81015; 83880; 84484; 85025; 85610; 85730; 93005; Q9967

== ENCOUNTER 2020-04-27 17:35 | Emergency (ER) | payer MEDICARE, OTHER ==
[2020-04-27] MEDS ORDERED: Dexamethasone 20 MG/5 ML VIAL ONE (17:53)
--- NOTE | 2020-04-27 18:56 | RAD ---
XR Chest 1 View Portable History: Cough Comparison: Radiograph 2018. Findings: Heart size mildly enlarged. Mild pulmonary venous congestion. No confluent airspace consoli dation, pneumothorax or effusion. No acute osseous abnormality. Impression: Cardiomegaly with mild pulmonary venous congestion.
[2020-04-27 19:43] LABS: PTT 55.2 sec (22.9-36.1); Prothrombin Time 31.4 sec (12.0-14.7)
[2020-04-27 19:44] LABS: #Lymphocytes 0.9 thou/uL (1.20-3.40); #Monocytes 0.2 thou/uL (0.11-0.59); #Neutrophils 3.1 thou/uL (1.40-6.50); %Basophils 0.5 % (0.0-1.0); %Eosinophils 0.6 % (0.0-10.0); %Lymphocytes 21.5 % (21.0-51.0); %Monocytes 5.4 % (0.0-10.0); Hemoglobin 14.6 g/dL (12.0-16.0); Mean Corpuscular HGB CONC 31.1 g/dL (32.0-36.0); Mean Corpuscular Hemoglobin 28.2 pg (27.0-31.0); Mean Corpuscular Volume 90.7 fL (78.0-98.0); Mean Platelet Volume 8.2 fL (7.4-10.4); Platelet Count 152 thou/uL (130-400); RBC Distribution Width 13.5 % (11.5-14.5); Red Blood Cell (RBC) Count 5.16 mill/uL (4.20-5.40); White Blood Cell (WBC) Count 4.3 thou/uL (4.8-10.8)
[2020-04-27 19:51] LABS: ALT (SGPT) 32 U/L (8-55); AST (SGOT) 34 U/L (5-34); Albumin 3.6 g/dL (3.5-5.0); Alkaline Phosphatase 71 U/L (40-110); Anion Gap 10 mmol/L (10-20); BUN (Urea Nitrogen) 10 mg/dL (9.8-20.1); Bilirubin, Total 0.5 mg/dL (0.2-1.2); Calc. Creatinine Clearance 0 mL/min (70-130); Calcium 8.5 mg/dL (7.8-10.44); Carbon Dioxide 27 mmol/L (22-29); Chloride 104 mmol/L (98-107); Estimated GFR-MDRD 73; Globulin 3.8 g/dL (2.4-3.5); Glucose 116 mg/dL (70-105); Potassium 4.2 mmol/L (3.5-5.1); Protein, Total 7.4 g/dL (6.0-8.3); Sodium 137 mmol/L (136-145)
[2020-04-27 19:56] LABS: Large Platelets SLIGHT; MDiff Complete? YES; Platelet Morphology Comment Appears Adequate; RBC Morphology Normal
== END 2020-04-27 20:25 | disposition home or self-care (01) ==
LOC: NAV ERS 17:35
DX: U07.1 COVID-19 (principal); D64.9 Anemia, unspecified; J45.909 Unspecified asthma, uncomplicated; G47.30 Sleep apnea, unspecified; I10 Essential (primary) hypertension; M19.90 Unspecified osteoarthritis, unspecified site; F41.9 Anxiety disorder, unspecified; F32.9 Major depressive disorder, single episode, unspecified; Z79.899 Other long term (current) drug therapy; Z86.718 Personal history of other venous thrombosis and embolism
CPT/HCPCS: 71045; 80053; 83605; 83880; 85025; 85610; 85730; 96372; 99285; J1100

== ENCOUNTER 2020-07-14 09:01 | Emergency (ER) | payer MEDICARE, OTHER ==
--- NOTE | 2020-07-14 11:03 | RAD ---
RIGHT TIBIA FIBULA: INDICATION: Pain in lower extremity. FINDINGS: Mild degenerative change at the knee. No fracture or acute osseous abnormality. IMPRESSION: No acute finding. POS: [facility]
== END 2020-07-14 10:10 | disposition home or self-care (01) ==
LOC: NAV ERS 09:01
DX: G89.29 Other chronic pain (principal); M79.604 Pain in right leg; Z86.718 Personal history of other venous thrombosis and embolism; I10 Essential (primary) hypertension; Z79.899 Other long term (current) drug therapy

== ENCOUNTER 2020-09-18 11:27 | Emergency (ER) | payer MEDICARE, OTHER | END 2020-09-18 12:30 | disposition home or self-care (01) | LOC: NAV ERS 11:27 | DX: S93.401A Sprain of unspecified ligament of right ankle, initial encounter (principal); M77.11 Lateral epicondylitis, right elbow; I10 Essential (primary) hypertension; Z79.899 Other long term (current) drug therapy; X50.1XXA Overexertion from prolonged static or awkward postures, initial encounter ==

== ENCOUNTER 2020-10-29 13:37 | Emergency (ER) | payer MEDICARE, OTHER ==
[2020-10-29] MEDS ORDERED: methylPREDNISolone Sod Succ/PF 125 MG/2 ML VIAL ONE (14:09)
== END 2020-10-29 15:15 | disposition home or self-care (01) ==
LOC: NAV ERS 13:37
DX: M17.12 Unilateral primary osteoarthritis, left knee (principal); I10 Essential (primary) hypertension; Z79.899 Other long term (current) drug therapy
CPT/HCPCS: 96372; J2930

== ENCOUNTER 2021-01-15 20:36 | Emergency (ER) | payer MEDICARE, OTHER ==
[2021-01-15 21:25] LABS: #Eosinphils 0.1 thou/uL (0.0-0.7); #Lymphocytes 1.9 thou/uL (1.20-3.40); #Monocytes 0.3 thou/uL (0.11-0.59); %Basophils 0.7 % (0.0-1.0); %Eosinophils 1.3 % (0.0-10.0); %Lymphocytes 30.2 % (21.0-51.0); %Monocytes 4.6 % (0.0-10.0); %Neutrophils 63.2 % (42.0-75.0); Hypochromia MODERATE=16-30 cells (100X) (0-5/hpf); MDiff Complete? YES; Mean Corpuscular HGB CONC 29.9 g/dL (32.0-36.0); Mean Corpuscular Hemoglobin 27.1 pg (27.0-31.0); Mean Corpuscular Volume 90.6 fL (78.0-98.0); Platelet Count 199 thou/uL (130-400); Platelet Morphology Comment Appears Adequate; RBC Distribution Width 15.3 % (11.5-14.5); Red Blood Cell (RBC) Count 4.78 mill/uL (4.20-5.40); White Blood Cell (WBC) Count 6.4 thou/uL (4.8-10.8)
[2021-01-15 21:27] LABS: ALT (SGPT) 11 U/L (8-55); AST (SGOT) 16 U/L (5-34); Albumin 3.8 g/dL (3.5-5.0); Alkaline Phosphatase 91 U/L (40-110); Anion Gap 12 mmol/L (10-20); BUN (Urea Nitrogen) 12 mg/dL (9.8-20.1); Bilirubin, Total 0.4 mg/dL (0.2-1.2); Calc. Creatinine Clearance 0 mL/min (70-130); Calcium 9.2 mg/dL (7.8-10.44); Carbon Dioxide 25 mmol/L (22-29); Chloride 107 mmol/L (98-107); Globulin 3.6 g/dL (2.4-3.5); Glucose 99 mg/dL (70-105); Potassium 3.7 mmol/L (3.5-5.1); Protein, Total 7.4 g/dL (6.0-8.3); Sodium 140 mmol/L (136-145)
[2021-01-15 21:31] LABS: Prothrombin Time 23.2 sec (12.0-14.7)
[2021-01-15 21:32] LABS: PTT 33.5 sec (22.9-36.1)
[2021-01-15 21:38] LABS: D-Dimer Test 0.44 *mcg/mL (0.27-0.43)
== END 2021-01-15 22:20 | disposition home or self-care (01) ==
LOC: NAV ERS 20:36
DX: F41.9 Anxiety disorder, unspecified (principal); M79.661 Pain in right lower leg; J45.909 Unspecified asthma, uncomplicated; Z86.718 Personal history of other venous thrombosis and embolism; I10 Essential (primary) hypertension; Z79.01 Long term (current) use of anticoagulants; Z79.899 Other long term (current) drug therapy
CPT/HCPCS: 36415; 71045; 80053; 84484; 85025; 85379; 93005; 94760

== ENCOUNTER 2021-04-28 13:44 | Emergency (ER) | payer MEDICARE, OTHER ==
[2021-04-28 14:50] LABS: Bilirubin Negative (Negative); Blood, Urine Moderate (Negative); Clarity Clear (Clear); Glucose, Urine (Dipstick) Negative (Negative); Ketone, Urine Negative (Negative); Leukocyte Small (Negative); Nitrite Negative (Negative); Protein, Urine (Dipstick) Negative (Neg-Trace); Specific Gravity, Urine 1.025 (1.005-1.030); Urobilinogen 0.2 mg/dL (Less than 2)
[2021-04-28 14:58] LABS: Bacteria/HPF 1+ HPF (None Seen); Squamous Epithelial 0-3 HPF (0-3)
[2021-04-29 21:13] LABS: SARS-CoV-2 PCR by NAA Not Detected (NotDetected)
== END 2021-04-28 15:44 | disposition home or self-care (01) ==
LOC: NAV ERS 13:44
DX: J04.0 Acute laryngitis (principal); M76.811 Anterior tibial syndrome, right leg; Z20.822 Contact with and (suspected) exposure to COVID-19; D64.9 Anemia, unspecified; I10 Essential (primary) hypertension; J45.909 Unspecified asthma, uncomplicated; K76.0 Fatty (change of) liver, not elsewhere classified; G47.30 Sleep apnea, unspecified; M19.90 Unspecified osteoarthritis, unspecified site; Z86.718 Personal history of other venous thrombosis and embolism; Z86.711 Personal history of pulmonary embolism; Z79.899 Other long term (current) drug therapy; Z79.01 Long term (current) use of anticoagulants
CPT/HCPCS: 87086; 99283; U0003; U0005; 81003; 81015

== ENCOUNTER 2021-10-12 18:34 | Emergency (ER) | payer MEDICARE, OTHER ==
[2021-10-12 19:34] LABS: #Eosinphils 0.1 thou/uL (0.0-0.7); #Monocytes 0.3 thou/uL (0.11-0.59); #Neutrophils 4.1 thou/uL (1.40-6.50); %Basophils 0.5 % (0.0-1.0); %Lymphocytes 30.4 % (21.0-51.0); %Monocytes 4.4 % (0.0-10.0); %Neutrophils 62.7 % (42.0-75.0); Mean Corpuscular HGB CONC 29.9 g/dL (32.0-36.0); Mean Corpuscular Hemoglobin 27.5 pg (27.0-31.0); Mean Corpuscular Volume 92.1 fL (78.0-98.0); Mean Platelet Volume 9.5 fL (7.4-10.4); Platelet Count 182 thou/uL (130-400); Red Blood Cell (RBC) Count 4.35 mill/uL (4.20-5.40); White Blood Cell (WBC) Count 6.6 thou/uL (4.8-10.8)
[2021-10-12 19:44] LABS: INR-International Normal Ratio 3.6; Prothrombin Time 36.4 sec (12.0-14.7)
== END 2021-10-12 20:14 | disposition home or self-care (01) ==
LOC: NAV ERS 18:34
DX: D25.9 Leiomyoma of uterus, unspecified (principal); N92.0 Excessive and frequent menstruation with regular cycle; M79.604 Pain in right leg; I10 Essential (primary) hypertension; Z79.899 Other long term (current) drug therapy; Z79.01 Long term (current) use of anticoagulants
CPT/HCPCS: 36415; 85025; 85610; 99284

== ENCOUNTER 2021-10-17 02:54 | Emergency (ER) | payer MEDICARE, OTHER | END 2021-10-17 04:01 | disposition home or self-care (01) | LOC: NAV ERS 02:54 | DX: F41.9 Anxiety disorder, unspecified (principal); I11.0 Hypertensive heart disease with heart failure; I50.9 Heart failure, unspecified; J45.909 Unspecified asthma, uncomplicated; D64.9 Anemia, unspecified; M19.90 Unspecified osteoarthritis, unspecified site; G47.30 Sleep apnea, unspecified; Z86.718 Personal history of other venous thrombosis and embolism; Z86.711 Personal history of pulmonary embolism; Z87.19 Personal history of other diseases of the digestive system | CPT/HCPCS: 99282 ==

== ENCOUNTER 2021-12-06 14:04 | Emergency (ER) | payer MEDICARE, OTHER ==
[2021-12-06 14:48] LABS: ALT (SGPT) 15 U/L (8-55); AST (SGOT) 17 U/L (5-34); Alkaline Phosphatase 89 U/L (40-110); Anion Gap 15 mmol/L (10-20); BUN (Urea Nitrogen) 7 mg/dL (9.8-20.1); Bilirubin, Total 0.8 mg/dL (0.2-1.2); Calc. Creatinine Clearance 0 mL/min (70-130); Calcium 9.5 mg/dL (7.8-10.44); Carbon Dioxide 23 mmol/L (22-29); Chloride 107 mmol/L (98-107); Globulin 2.8 g/dL (2.4-3.5); Glucose 111 mg/dL (70-105); Lipase 29 U/L (8-78); Potassium 3.3 mmol/L (3.5-5.1); Protein, Total 6.8 g/dL (6.0-8.3); Sodium 142 mmol/L (136-145)
[2021-12-06 15:15] LABS: #Basophils 0.1 thou/uL (0.0-0.2); #Eosinphils 0.4 thou/uL (0.0-0.7); #Lymphocytes 1.6 thou/uL (1.20-3.40); #Monocytes 0.4 thou/uL (0.11-0.59); #Neutrophils 5.6 thou/uL (1.40-6.50); %Basophils 0.8 % (0.0-1.0); %Eosinophils 4.9 % (0.0-10.0); %Lymphocytes 20.1 % (21.0-51.0); %Monocytes 5.2 % (0.0-10.0); %Neutrophils 68.9 % (42.0-75.0); Hemoglobin 12.4 g/dL (12.0-16.0); Mean Corpuscular HGB CONC 29.8 g/dL (32.0-36.0); Mean Corpuscular Hemoglobin 27.5 pg (27.0-31.0); Mean Corpuscular Volume 92.4 fL (78.0-98.0); Mean Platelet Volume 10.4 fL (7.4-10.4); Platelet Count 175 thou/uL (130-400); RBC Distribution Width 15.4 % (11.5-14.5); Red Blood Cell (RBC) Count 4.51 mill/uL (4.20-5.40); White Blood Cell (WBC) Count 8.1 thou/uL (4.8-10.8)
[2021-12-06] MEDS ORDERED: Potassium Chloride 20 MEQ TAB ONE (15:42)
[2021-12-06] MEDS ORDERED: Pot Chloride/Pot Bicarb/Cit Ac 25 mEq Effervescent Tablet ONE (15:43)
[2021-12-06] MEDS ORDERED: Potassium Chloride 20 MEQ TAB PO SCH (15:45)
== END 2021-12-06 15:54 | disposition home or self-care (01) ==
LOC: NAV ERS 14:04
DX: R11.2 Nausea with vomiting, unspecified (principal); E87.6 Hypokalemia; Z86.711 Personal history of pulmonary embolism; Z86.718 Personal history of other venous thrombosis and embolism; Z79.01 Long term (current) use of anticoagulants; D64.9 Anemia, unspecified; M19.90 Unspecified osteoarthritis, unspecified site; I11.0 Hypertensive heart disease with heart failure; I50.9 Heart failure, unspecified; J45.909 Unspecified asthma, uncomplicated; Z79.899 Other long term (current) drug therapy
CPT/HCPCS: 80053; 83690; 85025; 99284

== ENCOUNTER 2022-02-05 21:53 | Emergency (ER) | payer OTHER ==
[2022-02-05] MEDS ORDERED: Ondansetron PF 4 MG/2 ML Vial ONE ×2 (22:33→23:19)
[2022-02-05] MEDS ORDERED: Fentanyl 100 MCG/2 ML VIAL ONE (22:33)
[2022-02-05 22:40] LABS: Hemoglobin 11.6 g/dL (12.0-16.0); Mean Corpuscular HGB CONC 31.9 g/dL (32.0-36.0); Mean Corpuscular Hemoglobin 28.8 pg (27.0-31.0); Mean Corpuscular Volume 90.3 fL (78.0-98.0); Mean Platelet Volume 8.5 fL (7.4-10.4); Platelet Count 158 thou/uL (130-400); Red Blood Cell (RBC) Count 4.04 mill/uL (4.20-5.40); White Blood Cell (WBC) Count 8.3 thou/uL (4.8-10.8)
[2022-02-05 22:46] LABS: INR-International Normal Ratio 2.3; PTT 28.6 sec (22.9-36.1); Prothrombin Time 25.7 sec (12.0-14.7)
[2022-02-05] MEDS ORDERED: Sodium Chloride 0.9% 2,000 ML ONE (22:47)
[2022-02-05 22:51] LABS: ALT (SGPT) 39 U/L (8-55); AST (SGOT) 36 U/L (5-34); Albumin 3.5 g/dL (3.5-5.0); Alkaline Phosphatase 78 U/L (40-110); Anion Gap 21 mmol/L (10-20); BUN (Urea Nitrogen) 9 mg/dL (9.8-20.1); Bilirubin, Total 0.7 mg/dL (0.2-1.2); Calc. Creatinine Clearance 0 mL/min (70-130); Calcium 9.4 mg/dL (7.8-10.44); Carbon Dioxide 21 mmol/L (22-29); Chloride 101 mmol/L (98-107); Estimated GFR 97; Glucose 178 mg/dL (70-105); Magnesium 1.2 mg/dL (1.6-2.6); Potassium 3.5 mmol/L (3.5-5.1); Protein, Total 6.5 g/dL (6.0-8.3); Sodium 139 mmol/L (136-145)
[2022-02-05 22:54] LABS: Band 17 % (5-11); Lymphocytes 9 % (21-51); Monocytes 1 % (0-10); Neutrophil 73 % (42-75)
[2022-02-05 22:57] LABS: Anisocytosis MODERATE=16-30 cells (100X) (0-5/hpf); Microcytosis SLIGHT = 6-15 cells (100X) (0-5/hpf)
[2022-02-05 22:58] LABS: Platelet Morphology Comment Appears Adequate
[2022-02-05 22:59] LABS: MDiff Complete? YES
[2022-02-05] MEDS ORDERED: Magnesium 2 GM/50 ML BAG (IN WATER) ONE (23:08)
[2022-02-05 23:19] LABS: CKMB 6.3 ng/mL (0-6.6)
[2022-02-05] MEDS ORDERED: Metoclopramide HCl 10 MG/2 ML VIAL ONE (23:23)
[2022-02-05] MEDS ORDERED: Sodium Chloride 0.9% 100 ML ONE (23:24)
[2022-02-06] MEDS ORDERED: Sodium Chloride 0.9% 100 ML ONE (01:39)
[2022-02-06] MEDS ORDERED: metroNIDAZOLE 500 MG/100 ML BAG ONE (01:39)
[2022-02-06] MEDS ORDERED: Cefepime 2 GM VIAL ONE (01:39)
[2022-02-06] MEDS ORDERED: Sodium Chloride 0.9% 1,000 ML ONE (02:10)
== END 2022-02-06 03:26 | disposition short-term general hospital (02) ==
LOC: NAV ERS 21:53
DX: K52.9 Noninfective gastroenteritis and colitis, unspecified (principal); E83.42 Hypomagnesemia; R00.0 Tachycardia, unspecified; I11.0 Hypertensive heart disease with heart failure; I50.9 Heart failure, unspecified; Z79.899 Other long term (current) drug therapy
CPT/HCPCS: 71045; 74176; 80053; 82553; 83735; 83880; 84484; 85025; 85610; 85730; 93005; 94760; 96365; 96367; 96375; J0692; J2405; J2765; J3010; J3475; J3490; J7050

== ENCOUNTER 2022-03-14 11:26 | Outpatient (CLI) | payer OTHER, MEDICARE ==
[2022-03-14 11:43] LABS: #Lymphocytes 0.7 thou/uL (1.20-3.40); #Monocytes 0.6 thou/uL (0.11-0.59); #Neutrophils 2.7 thou/uL (1.40-6.50); %Eosinophils 1.1 % (0.0-10.0); %Lymphocytes 16.5 % (21.0-51.0); %Monocytes 14.7 % (0.0-10.0); %Neutrophils 66.6 % (42.0-75.0); Hemoglobin 7.8 g/dL (12.0-16.0); Mean Corpuscular HGB CONC 29.3 g/dL (32.0-36.0); Mean Corpuscular Hemoglobin 30.6 pg (27.0-31.0); Platelet Count 228 thou/uL (130-400); RBC Distribution Width 17.9 % (11.5-14.5); Red Blood Cell (RBC) Count 2.54 mill/uL (4.20-5.40)
[2022-03-14 11:56] LABS: ALT (SGPT) 11 U/L (8-55); AST (SGOT) 11 U/L (5-34); Albumin 2.2 g/dL (3.5-5.0); Alkaline Phosphatase 96 U/L (40-110); Anion Gap 14 mmol/L (10-20); BUN (Urea Nitrogen) 14 mg/dL (9.8-20.1); Bilirubin, Total 0.3 mg/dL (0.2-1.2); CRP (Inflammatory) 3.19 mg/dL (= or < 0.5); Calc. Creatinine Clearance 0 mL/min (70-130); Calcium 7.8 mg/dL (7.8-10.44); Carbon Dioxide 27 mmol/L (22-29); Chloride 103 mmol/L (98-107); Estimated GFR 109; Globulin 2.5 g/dL (2.4-3.5); Glucose 117 mg/dL (70-105); Magnesium 1.8 mg/dL (1.6-2.6); Phosphorus 4.1 mg/dL (2.3-4.7); Protein, Total 4.7 g/dL (6.0-8.3); Sodium 140 mmol/L (136-145)
[2022-03-14 12:16] LABS: Follow-up Hematology Comp? YES; Follow-up Result - Hematology REPORT FAXED
[2022-03-14 14:49] LABS: INR-International Normal Ratio 1.8; Prothrombin Time 21.3 sec (12.0-14.7)
[2022-03-14 17:27] LABS: Triglycerides 112 mg/dL (Less than 150)
[2022-03-14 17:44] LABS: Follow-up Chemistry Comp? YES; Follow-up Result - Chemistry REPORT FAXED
== END 2022-03-14 11:27 | disposition home or self-care (01) ==
LOC: NAV LABSP 11:26
PROVIDERS: ATTEND Family Medicine
DX: Z51.81 Encounter for therapeutic drug level monitoring (principal); I82.409 Acute embolism and thrombosis of unspecified deep veins of unspecified lower extremity; C53.8 Malignant neoplasm of overlapping sites of cervix uteri; D63.0 Anemia in neoplastic disease; K31.84 Gastroparesis; Z79.01 Long term (current) use of anticoagulants
CPT/HCPCS: 80053; 83735; 84100; 84134; 84478; 85025; 85610; 86140

== ENCOUNTER 2022-04-17 18:02 | Emergency (ER) | payer OTHER, MEDICARE ==
[2022-04-17 19:10] LABS: #Lymphocytes 0.6 thou/uL (1.20-3.40); #Monocytes 0.2 thou/uL (0.11-0.59); #Neutrophils 3.1 thou/uL (1.40-6.50); %Basophils 0.3 % (0.0-1.0); %Eosinophils 1.1 % (0.0-10.0); %Lymphocytes 15.7 % (21.0-51.0); %Monocytes 5.8 % (0.0-10.0); %Neutrophils 77.1 % (42.0-75.0); Hemoglobin 9.7 g/dL (12.0-16.0); Mean Corpuscular Hemoglobin 31.6 pg (27.0-31.0); Mean Platelet Volume 7.1 fL (7.4-10.4); Platelet Count 199 thou/uL (130-400); Red Blood Cell (RBC) Count 3.05 mill/uL (4.20-5.40)
[2022-04-17 19:39] LABS: ALT (SGPT) 6 U/L (8-55); AST (SGOT) 14 U/L (5-34); Albumin 2.4 g/dL (3.5-5.0); Alkaline Phosphatase 92 U/L (40-110); Anion Gap 13 mmol/L (10-20); BUN (Urea Nitrogen) 14 mg/dL (9.8-20.1); Bilirubin, Total 0.3 mg/dL (0.2-1.2); Calc. Creatinine Clearance 0 mL/min (70-130); Calcium 8.4 mg/dL (7.8-10.44); Carbon Dioxide 25 mmol/L (22-29); Chloride 103 mmol/L (98-107); Estimated GFR 106; Globulin 3.1 g/dL (2.4-3.5); Glucose 96 mg/dL (70-105); Lipase 7 U/L (8-78); Magnesium 1.8 mg/dL (1.6-2.6); Potassium 3.6 mmol/L (3.5-5.1); Protein, Total 5.5 g/dL (6.0-8.3); Sodium 137 mmol/L (136-145)
[2022-04-17] MEDS ORDERED: Sodium Chloride 0.9% 1,000 ML ONE (21:21)
[2022-04-17 21:50] LABS: Bilirubin Negative (Negative); Blood, Urine Moderate (Negative); Clarity Clear (Clear); Glucose, Urine (Dipstick) Negative (Negative); Ketone, Urine Negative (Negative); Leukocyte Negative (Negative); Nitrite Negative (Negative); Protein, Urine (Dipstick) Negative (Neg-Trace); Urobilinogen 0.2 mg/dL (Less than 2); pH, Urine 6.5 (5.0-9.0)
[2022-04-17 21:56] LABS: Bacteria/HPF None Seen HPF (None Seen); WBC/HPF 0-3 HPF (0-3)
[2022-04-17 23:37] LABS: INR-International Normal Ratio 1.7; Prothrombin Time 20.3 sec (12.0-14.7)
== END 2022-04-18 01:15 | disposition home or self-care (01) ==
LOC: NAV ERS 18:02
DX: M79.81 Nontraumatic hematoma of soft tissue (principal); N13.9 Obstructive and reflux uropathy, unspecified; R60.0 Localized edema; R11.2 Nausea with vomiting, unspecified; I11.0 Hypertensive heart disease with heart failure; I50.9 Heart failure, unspecified; Z79.899 Other long term (current) drug therapy
CPT/HCPCS: 74177; 81003; 81015; 83690; 83735; 85610; J7050; Q9967